=== PATIENT | male | born 1955 | race Caucasian/White ===

== ENCOUNTER 2017-04-24 07:40 | Inpatient (IN) | payer OTHER ==
[2017-04-12 13:07] VITALS: BMI 23.0
--- NOTE | 2017-04-23 10:53 | History and Physical ---
History & Physical Date Apr 23, 2017. Chief Complaint RIGHT HIP PAIN History of Present Illness The patient is a 61 year old male with complaints of right hip pain for years. pt has failed nsaids and PT and is ready for MICK Additional History Hepatic Disease: No Endocrine Disorder: No Kidney Disease: No Hypertension: No Heart Disease: No Bleeding Tendencies: No Infectious Diseases: No Allergies Coded Allergies: Sulfa Antibiotics (Verified Allergy, Unknown, UNKNOWN, 04/12/17) Home Medications Scheduled PRN Amphetamine-Dextroamphetamine 10MG (Adderall 10MG), Unknown Dose PO UD PRN for PRN Physical Examination Skin: warm/dry, no rash Eyes: normal inspection, EOMI, sclerae normal ENT: normal ENT inspection, pharynx normal Head: normocephalic, atraumatic Neck: supple, no adenopathy, trachea midline Respiratory/Chest: lungs clear, normal breath sounds, no respiratory distress Cardiovascular: regular rate, rhythm, no edema, no murmur Abdomen / GI: normal bowel sounds, non tender Back: normal inspection Extremities: normal inspection, normal range of motion, + pertinent finding Neurologic/Psych: no motor/sensory deficits, alert, normal reflexes, oriented x 3 Diagnosis DJD RIGHT HIP Plan of Treatment PLAN IS TO ADMIT AND UNDERGO RIGHT TOTAL HIP ARTHROPLASTY.
[~2017-04-24] VITALS: Ht 172.7 cm; Wt 70.0 kg
[2017-04-24] VITALS (8 sets, daily range): BP systolic 104–161; BP diastolic 63–96; PULSE 46–93; TEMP 36.2–37; O2SAT 98–100; Ht 172.7 cm; Wt 70.0 kg
[2017-04-24] MEDS: TRANEXAMIC ACID INJ 1,000 MG x 2 Bags IV SCH ×4 (06:30→08:48)
[~2017-04-24 07:40] MED LIST: ACETAMINOPHEN 500 MG TAB PO SCH; AMPH10TA2 PO; BUPIVACAINE 0.5 % 5 MG/1 ML PF 10ML VIAL ONE; CEFAZOLIN 1000MG IV PUSH 7.5 ML IV SCH; CeleBREX 200 MG CAP PO SCH; DEXAMETHASONE 4 MG TAB PO SCH; FAMOTIDINE 20 MG TAB PO SCH; LACTATED RINGER'S 1000ML 1,000 ML IV SCH; LACTATED RINGER'S 1000ML 500 ML IV SCH; LACTATED RINGER'S 1000ML IV SCH; METOCLOPRAMIDE HCL 10 MG TAB PO SCH; ROPIVACAINE 5MG/ML 30 ML 150 MG, BUPIVACAINE 0.5% MPF INJ 30 ML, EpINEphrine HCL INJ 0.... INFIL SCH
[2017-04-24] MEDS ORDERED: MIDAZOLAM HCL 1 MG/ML 2ML VIAL ONE (08:10)
--- NOTE | 2017-04-24 08:16 | History & Physical Bridge Note ---
H&P Re-Evaluation Bridge Note: I have examined the patient, reviewed the History & Physical and in the interval since the performance of the History & Physical I have noted the following changes of clinical significance: No changes noted
[2017-04-24] MEDS ORDERED: ORTHO JOINT ANESTHETIC ONE (08:46)
[2017-04-24] MEDS ORDERED: BACITRACIN 50000 UNIT VIAL ONE (08:46)
[2017-04-24] MEDS ORDERED: POVIDONE-IODINE OP SOLN 30 ML BTL ONE (08:52)
[2017-04-24] MEDS ORDERED: MEPERIDINE HCL 25 MG/ML CARP IV PRN (09:15)
[2017-04-24] MEDS ORDERED: ATROPINE SULFATE 0.1 MG/ML 5ML SYR IV PRN (09:15)
[2017-04-24] MEDS ORDERED: FENTANYL CITRATE INJ 50 MCG/1 ML 2 ML VIAL IV PRN (09:15)
[2017-04-24] MEDS ORDERED: LABETALOL HCL IV 5 MG/ML 20ML IV PRN (09:15)
[2017-04-24] MEDS ORDERED: ONDANSETRON INJ 2 MG/ML 2 ML VIAL IV PRN ×2 (09:15→10:15)
[2017-04-24] MEDS ORDERED: EpHEDrine SULFATE INJ 50 MG/ML AMP IV PRN (09:15)
[2017-04-24] MEDS ORDERED: HYDROmorphone INJ 1 MG/ML SYR IV PRN (09:15)
[2017-04-24] MEDS ORDERED: FENTANYL CITRATE INJ 50 MCG/1 ML 2 ML VIAL ONE (09:31)
[2017-04-24] MEDS ORDERED: PROPOFOL IV EMULSION 10 MG/ML 20 ML VIAL IV ONE (10:12)
[2017-04-24] MEDS ORDERED: LIDOCAINE HCL 2% 2 ML VIAL (20MG/ML) ONE (10:12)
--- NOTE | 2017-04-24 10:12 | [facility] Post Operative Brief Note ---
Immediate Operative Summary Operative Date Apr 24, 2017. Pre-Operative Diagnosis Degenerative joint disease right hip. Post-Operative Diagnosis same as preoperative diagnosis Procedure(s) Performed Right total hip arthroplasty-uncemented Surgeon Dr. Carter Sealing And Canceling Machine Operator Surgeon(s) Elisha Armstrong PA-C Estimated Blood Loss 30cc Findings Consistent with Post-Op Diagnosis Specimens A. Right femoral head Drains one drain Anesthesia Type Spinal MAC Complication(s) none Disposition Accompanied Pt To Recover: no Disposition: Recovery Room / PACU
[2017-04-24] MEDS ORDERED: ALUMINUM/MAGNESIUM/SIMETH (MAALOX MAX) 30 ML UDC PO PRN (10:15)
[2017-04-24] MEDS ORDERED: BISACODYL 10 MG SUPP PR PRN (10:15)
[2017-04-24] MEDS ORDERED: MAGNESIUM HYDROXIDE SUSP 30 ML UDC PO PRN (10:15)
[2017-04-24] MEDS ORDERED: ZOLPIDEM TARTRATE 5 MG TAB PO PRN (10:15)
--- NOTE | 2017-04-24 10:23 | [facility] Operative Report ---
Operative Report Operative Date Apr 24, 2017. Pre-Operative Diagnosis Degenerative joint disease right hip. Post-Operative Diagnosis same as preoperative diagnosis Procedure(s) Performed Right total hip arthroplasty-uncemented Surgeon Dr. Carter Blocker Heated Metal Forms Surgeon(s) Elisha Armstrong PA-C Estimated Blood Loss 30cc Findings as above Specimens A. Right femoral head Drains one drain Anesthesia Type Spinal MAC Complication(s) none Disposition no Recovery Room / PACU Description of Procedure IMPLANTS USED: [place] size 56 mm PSL ORNELAS-coated acetabular cup, one acetabular screw, a 36 mm extremity elevated liner, a #3 Accolade 2 stem with a 127 neck and a 36 mm -5 ceramic head INDICATIONS: Mr. Johns is a pleasant male who has unfortunately failed all forms of conservative measures. Therefore, they have has decided to undergo elective surgical intervention. All risks and benefits of the surgery were discussed with the patient and the family in entirety. PROCEDURE: The patient was brought to the operating room and properly identified by myself, anesthesia, and staff. Patient was given a spinal anesthetic and placed on the operating table with the right hip up. The hip was then prepped and draped in the standard orthopedic fashion. We made a standard posterolateral approach over the greater trochanteric area. We then dissected down to subcutaneous tissue until the fascia was identified. We incised the fascia in line with the skin incision. We then split the gluteus yosi muscles with finger dissection. We then put the Charnley retractor in place. We placed the retractor underneath the gluteus medius to expose the piriformis. The piriformis was then tagged with a tag suture and released from the insertion from the greater trochanteric area with the use of electrocautery. We then performed a T capsulotomy and the femoral head and neck were atraumatically dislocated. We then performed femoral neck osteotomy at the pre-template site. We removed the femoral head and neck without difficulty. We then placed the retractor around the acetabulum. We then began to ream the acetabulum to the appropriate size. We then impacted the cup into place and had a very good fixation within the pelvis. We then put the liner in place as well. Then using multiple size approaches from the Accolade 2 system a size #3 fit very nicely in the proximal femur. I then put trial components in place. WE had very good range of motion, excellent stability, and excellent leg length equality. We removed the trial components and irrigated the wound. We then impacted the components in place and irrigated the wound once more. We then closed the capsule and fascia with a 0 Vicryl suture, the deep dermis with 2-0 Vicryl suture, and finally the skin with a running 3-0 Vicryl subcuticular stitch. A sterile dressing was applied. The patient was taken to the recovery room in stable condition. Due to the complex nature of the procedure, the entire surgery was performed with the operational assistance of Sandra Armstrong PA-C. The commercial lines assistant was under direct supervision, was involved in the actual performance of all aspects of the surgical procedure including hemostasis, tissue retraction and incision, instrument management, patient positioning, and wound closure. I attest to the content of the Intraoperative Record and any orders documented therein. Any exceptions are noted below.
--- NOTE | 2017-04-24 13:57 | Anesthesiology Progress Note ---
Anesthesia Post Op Note Date & Time Apr 24, 2017 at 13:56 Vital Signs Pain Intensity: 0.0 Vital Signs Past 12 Hours Date Time Temp Pulse Resp B/P (MAP) Pulse Ox O2 Delivery O2 Flow Rate FiO2 04/24/17 12:40 36.3 75 16 121/79 (93) 100 Nasal Cannula 2.0 04/24/17 12:10 36.2 71 16 121/77 (92) 100 Nasal Cannula 2.0 04/24/17 11:40 100 Nasal Cannula 3.0 04/24/17 11:40 100 Nasal Cannula 3.0 04/24/17 11:40 71 16 107/68 (81) 100 Nasal Cannula 2.0 04/24/17 11:35 36.6 16 04/24/17 11:31 103/67 04/24/17 11:30 73 12 04/24/17 11:30 74 12 100 04/24/17 11:26 108/67 04/24/17 11:25 68 16 04/24/17 11:25 69 16 100 04/24/17 11:21 109/70 04/24/17 11:20 72 12 04/24/17 11:20 67 12 100 04/24/17 11:16 97/63 04/24/17 11:15 67 10 100 04/24/17 11:15 67 10 04/24/17 11:11 112/72 04/24/17 11:10 65 11 04/24/17 11:10 64 11 100 04/24/17 11:06 113/71 04/24/17 11:05 67 9 04/24/17 11:05 67 9 100 04/24/17 11:01 105/63 04/24/17 11:00 64 10 100 04/24/17 11:00 64 10 04/24/17 10:56 97/68 04/24/17 10:55 71 12 04/24/17 10:55 71 12 100 04/24/17 10:51 109/65 04/24/17 10:50 65 11 100 04/24/17 10:50 65 11 04/24/17 10:47 102/58 04/24/17 10:40 36.4 67 14 106/67 100 Oxymask 7 04/24/17 08:09 36.7 80 16 161/96 100 Room Air Notes Mental Status: alert / awake / arousable, participated in evaluation Pt Amnestic to Procedure: Yes Nausea / Vomiting: adequately controlled Pain: adequately controlled Airway Patency, RR, SpO2: stable & adequate BP & HR: stable & adequate Hydration State: stable & adequate Anesthetic Complications: no major complications apparent
[2017-04-24] MEDS: SODIUM CHLORIDE 0.9% 1000ML 1,000 ML IV SCH (15:35)
[2017-04-24] MEDS ORDERED: TRANEXAMIC ACID INJ 1,000 MG in SODIUM CHLORIDE 0.9% 100ML 100 ML IV ONE (16:30)
[2017-04-24] MEDS: ACETAMINOPHEN 500 MG TAB PO SCH ×2 (17:04→21:00)
[2017-04-24] MEDS: CEFAZOLIN IV 2,000 MG in SYRINGE 0 ML IV SCH (17:04)
[2017-04-24] MEDS: ASPIRIN 81 MG ECTAB PO SCH (20:59)
[2017-04-24] MEDS: DOCUSATE SODIUM 100 MG CAP PO SCH (20:59)
[2017-04-25] MEDS: SODIUM CHLORIDE 0.9% 1000ML 1,000 ML IV SCH ×2 (01:31→08:15)
[2017-04-25] MEDS: CEFAZOLIN IV 2,000 MG in SYRINGE 0 ML IV SCH (01:32)
[2017-04-25 04:00] VITALS: BP 125/65; PULSE 73; TEMP 36.9; O2SAT 100
[2017-04-25] MEDS: ACETAMINOPHEN 500 MG TAB PO SCH ×2 (05:38→05:44)
[2017-04-25] MEDS: OXYCODONE HCL IR 5 MG TAB (IMMEDIATE RELEASE) PO PRN ×2 (05:40→05:44)
[2017-04-25] MEDS ORDERED: DEXAMETHASONE INJ 10 MG in SYRINGE 0 ML IV ONE (07:30)
[2017-04-25 07:31] VITALS: BP 123/72; PULSE 73; TEMP 37.2; O2SAT 99
[2017-04-25 07:49] LABS: BASO ABS # 0.01 K/uL (0-0.2); HEMATOCRIT 39.4 % (42-52); HEMOGLOBIN 13.8 g/dL (14.0-18.0); IG# 0.06 K/uL (0.00-0.02); LYMPH % 4.9 %; LYMPH ABS # 1.04 K/uL (1.2-3.4); MEAN CELL VOLUME 86.8 fL (80-100); MEAN CORPUSCULAR HEMOGLOBIN 30.4 pg (25-34); MEAN PLATELET VOLUME 9.5 fL (7.4-10.4); MONO % 10.8 %; MONO ABS # 2.31 K/uL (0.11-0.59); NEUT ABS # 17.97 K/uL (1.4-6.5); PLATELET COUNT 278 K/uL (130-400); RED CELL DISTRIBUTION WIDTH CV 12.9 % (11.5-14.5); RED CELL DISTRIBUTION WIDTH SD 41.5 fL (36.4-46.3); WHITE BLOOD COUNT 21.39 K/uL (4.8-10.8)
[2017-04-25] MEDS: ASPIRIN 81 MG ECTAB PO SCH (08:56)
[2017-04-25] MEDS: DOCUSATE SODIUM 100 MG CAP PO SCH (08:56)
--- NOTE | 2017-04-25 09:09 | Orthopedic Progress Note ---
Orthopedic Progress Note Date of Service Apr 25, 2017. Subjective Additional Notes: Pt c/o not sleeping much last night. Had some muscle spasms off and on in the operative leg. Spent in the night in and out of bed from bed to chair. Pain controlled fairly well at this time. Hoping to go home today. Nursing relates that he is not following his precautions especially with using his walker. PT to work with him today and reinforce use with walker. Objective calves soft nontender, N/V intact, hip located, dressing C/D/I, A&O x3, toes mobile Date Time Temp Pulse Resp B/P (MAP) Pulse Ox O2 Delivery O2 Flow Rate FiO2 04/25/17 08:23 Room Air 04/25/17 07:31 37.2 73 18 123/72 (89) 99 Room Air 04/25/17 04:00 36.9 73 16 125/65 (85) 100 Room Air 04/24/17 22:50 37.0 93 16 145/68 (93) 98 Room Air 04/24/17 19:30 Room Air 04/24/17 19:00 36.6 85 18 148/71 (96) 100 Room Air 04/24/17 15:04 Room Air 04/24/17 14:36 36.4 46 16 104/63 (77) 98 Room Air 04/24/17 13:40 71 16 111/67 (82) 98 Nasal Cannula 2.0 04/24/17 12:40 36.3 75 16 121/79 (93) 100 Nasal Cannula 2.0 04/24/17 12:10 36.2 71 16 121/77 (92) 100 Nasal Cannula 2.0 04/24/17 11:40 100 Nasal Cannula 3.0 04/24/17 11:40 100 Nasal Cannula 3.0 04/24/17 11:40 71 16 107/68 (81) 100 Nasal Cannula 2.0 04/24/17 11:35 36.6 16 04/24/17 11:31 103/67 04/24/17 11:30 73 12 04/24/17 11:30 74 12 100 04/24/17 11:26 108/67 04/24/17 11:25 68 16 04/24/17 11:25 69 16 100 04/24/17 11:21 109/70 04/24/17 11:20 72 12 04/24/17 11:20 67 12 100 04/24/17 11:16 97/63 04/24/17 11:15 67 10 100 04/24/17 11:15 67 10 04/24/17 11:11 112/72 04/24/17 11:10 65 11 04/24/17 11:10 64 11 100 04/24/17 11:06 113/71 04/24/17 11:05 67 9 04/24/17 11:05 67 9 100 04/24/17 11:01 105/63 04/24/17 11:00 64 10 100 04/24/17 11:00 64 10 04/24/17 10:56 97/68 04/24/17 10:55 71 12 04/24/17 10:55 71 12 100 04/24/17 10:51 109/65 04/24/17 10:50 65 11 100 04/24/17 10:50 65 11 04/24/17 10:47 102/58 04/24/17 10:40 36.4 67 14 106/67 100 Oxymask 7 Laboratory Results 24 Hours: Test 04/25/17 06:57 White Blood Count 21.39 K/uL Red Blood Count 4.54 M/uL Hemoglobin 13.8 g/dL Hematocrit 39.4 % Mean Corpuscular Volume 86.8 fL Mean Corpuscular Hemoglobin 30.4 pg Mean Corpuscular Hemoglobin Concent 35.0 g/dl Platelet Count 278 K/uL Mean Platelet Volume 9.5 fL Neutrophils (%) (Auto) 84.0 % Lymphocytes (%) (Auto) 4.9 % Monocytes (%) (Auto) 10.8 % Eosinophils (%) (Auto) 0.0 % Basophils (%) (Auto) 0.0 % Neutrophils # (Auto) 17.97 K/uL Lymphocytes # (Auto) 1.04 K/uL Monocytes # (Auto) 2.31 K/uL Eosinophils # (Auto) 0.00 K/uL Basophils # (Auto) 0.01 K/uL Assessment & Plan Assessment: POD 1 s/p Right MICK Plan: PT/OT Planning for OPPT Possible dc to home today. Inhouse Planning Pain Management: PO Tylenol, Oxy IR DVT Prophylaxis: TEDs, SCDs, ASA Discharge Planning Discharge Planning: home with oppt Pain Management: Ultram, PO Tylenol DVT Prophylaxis: TEDs, SCDs, ASA Therapy: Physical Therapy
[2017-04-25] MEDS ORDERED: ASPEC81 PO (09:11)
[2017-04-25] MEDS ORDERED: ACET-24 PO (09:11)
[2017-04-25] MEDS ORDERED: TRAM-10 PO (09:11)
--- NOTE | 2017-04-25 09:15 | Discharge Instructions ---
Discharge Instructions Date of Service Apr 25, 2017. Admission Reason for Admission: Right Hip Osteoarthritis Discharge Discharge Diagnosis / Problem: Right Hip Djd Discharge Goals Goal(s): Decrease discomfort, Improve function, Increase independence Activity Recommendations Activity Limitations: per Instructions/Follow-up section Weightbearing Status: Right weightbearing (as tolerated) . Instructions / Follow-Up Instructions / Follow-Up Dr Carter Total Hip Replacement Discharge Instructions Silverlon dressing stays on for 7 days. It must be changed if it is soaked. This can be replaced with gauze and ZEYAD Wrap. Otherwise, if not soaked, it's stays on for 7 days. Patients my shower after 2 days if the Silverlon is on because it is waterproof, but not Spa proof. If the Silverlon had to be removed then patient should wait 5 days to shower. Quick showers, not Spa time! After 7 days, please wipe with gauze and peroxide once daily. Do Not Soak. ICE constantly. If a drain is in place, it is to be removed when less than 10cc for 2 consecutive 8 hr shifts. If BRANDY / Prevena device is in place, please see the instructions sheet. Also every Home Nursing Agency, Home PT, and Rehab is aware how this works. If your Home nurse or Therapist says they don't know what this is, have them call [facility] or their retail assistant manager right away. It is meant to protect and help your incision healed faster. Please read the Do's and Don'ts sheet. This paper and the dues and downs are the most important the rest of your paperwork from the hospital is redundant and or confusing. This is the info I want you to take to heart. I typically give you 5 prescriptions. Some are Eprescribed to pharmacy already. They are: 1. Tramadol or some form of pain pill. Please take. Most important. 2. Aspirin - this is for blood clot prevention, please take. You may have them prescribe something stronger than aspirin, if so, you won't have a script for aspirin daily. 3. Tylenol. 4. Zofran - this is for nausea, take it if you need. 5. Celebrex - helps with inflammation, if not covered by insurance, then use ibuprofen 600 mg 2 to 3 times a day. If any problems or concerns, please call [facility] ( Latrice if she is your coordinator ) FIRST. Do not go to ER unless directed by your [facility] physician or it's an absolute emergency. Our phone numbers are located all throughout your U packet. Follow up with Dr Carter in 2 weeks. Call for an appointment if one has not been made for you. [phone] Current Hospital Diet Patient's current hospital diet: Regular Diet Discharge Diet Recommended Diet: Regular Diet Procedures Procedures Performed: Right total hip arthroplasty-uncemented Pending Studies Studies pending at discharge: no Medical Emergencies . Who to Call and When: Medical Emergencies: If at any time you feel your situation is an emergency, please call 911 immediately. . Non-Emergent Contact Non-Emergency issues call your: Surgeon Call Non-Emergent contact if: temperature is above 101.5, your pain is not controlled, your pain is worsening, wound has increased drainage, wound has increased redness . "Provider Documentation" section prepared by Tal Corbett. . VTE Core Measure Inpt VTE Proph given/why not?: Other Anticoagulation, T.E.D. Stockings, SCD's [place] Drug Monitoring Program Search Results: patient reviewed within database, no issues identified
[2017-04-25 09:25] VITALS: BP 123/72; PULSE 73; TEMP 37.2; O2SAT 99
--- NOTE | 2017-04-25 13:35 | ORTHOPEDIC PROGRESS NOTE ---
DATE: 04/25/2017 SECONDARY PROGRESS NOTE FOR: Dr. Carter SUBJECTIVE: Early this morning, I was contacted by Chio Lisa RN who is in charge of [facility], and stated that the patient was planning on driving home. We initially thought he had had a ride to coming to pick him up; however, this was not the case and apparently he had his car in the parking lot and was planning on driving home. Nursing discussed with the patient that that was probably not possible plus he had had some narcotic medication earlier on the 5:30ish this morning, but had not anything since that time. I then contacted Dr. Carter at that point and asked him if the patient should drive home [address] surgery[address]. Carter said that it would not be appropriate and that he needed to have a ride pick him up and he was not to drive. I then relayed that message to Chio Lisa RN and then continued to do my rounds. I later received a message from Chio and also spoke to her and spoke to management here on the third floor and apparently the patient became irate and went down to the administration section. At that point, he was then guided to HIM where he was waiting for his medical records to be copied; however, they had already sent him up to the floor. He then had them recopied them and he left the facility without signing out AMA or without a ride apparently. He was apparently very irate and was rude to the staff, but the matter was apparently handled well through management/nursing staff and the patient again left the facility and I am assuming that he did drive home, on his own power. Again, this was not recommended by nursing and also again by Dr. Carter and myself that he not drive home. [facility]
== END 2017-04-25 12:15 | disposition home or self-care (01) | DRG 470 ==
LOC: C.ACU 07:40 → C.3E 10:20 → ENRESERV 11:18
PROVIDERS: ADMIT Orthopaedic Surgery; ATTEND Orthopaedic Surgery
PROC: 0SR90JA Replacement of Right Hip Joint with Synthetic Substitute, Uncemented, Open Approach (ICD-10-PCS; principal; 2017-04-24 09:45)
DX: M16.11 Unilateral primary osteoarthritis, right hip (principal); Z88.2 Allergy status to sulfonamides